=== PATIENT | female | born 1945 | race Caucasian/White ===

== ENCOUNTER → 2016-05-16 | Outpatient (CLI) | payer MEDICARE, BC ==
[~2016-05-16] MED LIST: ADVAIR 250/28 DISKU1 IH; ADVIL200 MG PO; ALTACE 10MG TAB10 MG PO; ALTACE 5MG5 MG PO; ASPIR-LOW81 MG PO; ASPIRIN 32325 MG/TA1 PO; ASPIRIN 81M81 MG/TA2 PO; ASPIRIN E.C. 8181 MG PO; COREG 6.256.25 MG/TA PO; CRUTCHES MC; DULCOLAX S10 MG/SUPP RC; FEMARA PO; FOLIC ACID 40400 MCG PO; FORADIL AERO0.012 MG IH; GOOD NEIGH1200 MG/15 PO; HERCEPTIN440 MG/VIA IV; IRON325 M1 PO; LEVOTHYROXINE0.05 M1 PO; LIPITOR20 MG PO; LOVENOX 4040 MG/0.4 SQ; MULTIPLE VITAMI1 CAP PO; NORCO 325 MG-51 TAB PO; NORCO 325 MG-7.1 TAB PO; PERCOCET 325 MG1 TA2 PO; PREDNISONE20 MG PO; PREMARIN 0.60.625 MG PO; PRIL40; PRILOSEC 20MG20 MG PO; PROAIR HFA0.09 MG/AC IH; ROXICODONE 55 MG/TAB PO; RT SPIRIVA18 MCG IH; SENOKOT S 50 MG1 TAB PO; STIOLTO RESPIMAT4 GM IH; SYNTHROID0.05 MG/TA PO; THEO-24100 MG PO; TIROSINT50 MCG PO; TYLENOL 325MG325 MG PO; ULTRAM 50MG TAB50 MG PO; UNIPHYL 400MG400 MG PO; VITAMIN B COMPL1 SGL PO; VITAMIN C500 MG PO; ZOFRAN 4MG T4 MG/TAB PO
== END ==
LOC: COL.RAD 13:14
DX: R22.2 Localized swelling, mass and lump, trunk (principal); Z85.3 Personal history of malignant neoplasm of breast

== ENCOUNTER → 2016-06-24 | Outpatient (CLI) | payer MEDICARE, BC | LOC: MC.RAD 09:52 | DX: Z12.31 Encounter for screening mammogram for malignant neoplasm of breast (principal); Z85.3 Personal history of malignant neoplasm of breast; Z90.12 Acquired absence of left breast and nipple | CPT/HCPCS: G0202 ==

== ENCOUNTER 2016-12-12 09:52 | Emergency (ER) | payer MEDICARE, BC ==
[~2016-12-12] VITALS: Ht 165.1 cm; Wt 90.9 kg
[~2016-12-12 09:52] MED LIST changes: -CRUTCHES MC; -DULCOLAX S10 MG/SUPP RC; -GOOD NEIGH1200 MG/15 PO; -LOVENOX 4040 MG/0.4 SQ; -NORCO 325 MG-51 TAB PO; -PERCOCET 325 MG1 TA2 PO; -PRILOSEC 20MG20 MG PO; -PROAIR HFA0.09 MG/AC IH; -SENOKOT S 50 MG1 TAB PO; -STIOLTO RESPIMAT4 GM IH; -SYNTHROID0.05 MG/TA PO; -TYLENOL 325MG325 MG PO; -UNIPHYL 400MG400 MG PO; -VITAMIN B COMPL1 SGL PO
[2016-12-12 09:53] VITALS: TEMP 97.8
[2016-12-12] MEDS ORDERED: ALTACE 10MG TAB10 MG PO (10:26)
[2016-12-12] MEDS ORDERED: STIOLTO RESPIMAT4 GM IH (10:26)
[2016-12-12] MEDS ORDERED: ASPIRIN E.C. 8181 MG PO (10:27)
[2016-12-12] MEDS ORDERED: SYNTHROID0.05 MG/TA PO (10:27)
[2016-12-12] MEDS ORDERED: LIPITOR20 MG PO (10:28)
[2016-12-12] MEDS ORDERED: UNIPHYL 400MG400 MG PO (10:28)
[2016-12-12] MEDS ORDERED: PRILOSEC 20MG20 MG PO (10:29)
[2016-12-12] MEDS ORDERED: VITAMIN B COMPL1 SGL PO (10:29)
[2016-12-12] MEDS ORDERED: PERCOCET 325 MG1 TA2 PO (11:12)
[2016-12-12] MEDS ORDERED: CRUTCHES MC (11:50)
[2016-12-12 12:03] VITALS: BP 135/84; PULSE 79
[2016-12-13] MEDS ORDERED: LOVENOX 4040 MG/0.4 SQ (19:20)
== END 2016-12-12 12:02 | disposition home or self-care (01) ==
LOC: COL.ER 09:52
DX: S82.141A Displaced bicondylar fracture of right tibia, initial encounter for closed fracture (principal); J44.9 Chronic obstructive pulmonary disease, unspecified; Z79.82 Long term (current) use of aspirin; W18.39XA Other fall on same level, initial encounter; Y92.830 Public park as the place of occurrence of the external cause; Y93.K1 Activity, walking an animal
CPT/HCPCS: L1830

== ENCOUNTER 2016-12-12 21:00 | Observation (INO) | payer MEDICARE, BC ==
[~2016-12-12] VITALS: Ht 165.1 cm; Wt 88.5 kg
[~2016-12-12 21:00] MED LIST changes: +CRUTCHES MC; +PERCOCET 325 MG1 TA2 PO; +PRILOSEC 20MG20 MG PO; +STIOLTO RESPIMAT4 GM IH; +SYNTHROID0.05 MG/TA PO; +UNIPHYL 400MG400 MG PO; +VITAMIN B COMPL1 SGL PO
[2016-12-12 22:12] LABS: BASO # 0.1 (0.0-0.2); BASO % 0.4 % (0.0-2.0); EOS % 0.2 % (0-4.0); GRAN # 11.6 (1.4-6.5); GRAN % 82.2 % (42.2-75.2); HEMATOCRIT 41.4 % (37.0-47.0); HEMOGLOBIN 14.2 g/dl (12.5-16.0); LYMPH # 1.5 (1.2-3.4); LYMPH % 10.6 % (20.0-51.0); MEAN CELL VOLUME 90 fl (80.0-100.0); MEAN CORPUSCULAR HEMOGLOBIN 31 pg (27.0-31.0); MEAN CORPUSCULAR HGB CONC 34 g/dl (33.0-37.0); MEAN PLATELET VOLUME 10.2 fl (7.4-10.4); MONO # 0.9 (0.1-0.6); MONO % 6.2 % (1.7-9.3); PLATELET COUNT 245 K/mm3 (130-400); RED BLOOD COUNT 4.58 M/mm3 (4.10-5.30); REDCELL DISTRIBUTION WIDTH-CV 12.7 % (11.5-14.5); WHITE BLOOD COUNT 14.1 K/mm3 (4.8-10.8)
[2016-12-12 22:21] LABS: CALCIUM 10.8 mg/dL (8.4-10.2); CREATININE, serum 0.84 mg/dL (0.52-1.25)
[2016-12-12 23:09] VITALS: BP 103/66; PULSE 83; TEMP 98.5
[2016-12-13 01:15] LABS: MAGNESIUM 1.8 mg/dL (1.6-2.3); PHOSPHOROUS 2.4 mg/dL (2.5-4.5)
[2016-12-13 03:49] VITALS: BP 117/84; PULSE 85; TEMP 98
[2016-12-13 04:04] LABS: PH 6 (5-8); SQUAMOUS EPITHELIAL None Seen /hpf; URINE APPEARANCE Clear; URINE BACTERIA Rare /hpf; URINE BILIRUBIN Negative (NEGATIVE); URINE BLOOD Negative (NEGATIVE); URINE COLOR Yellow; URINE GLUCOSE Negative (NEGATIVE); URINE KETONE Trace (NEGATIVE); URINE RBC 0-2 /hpf; URINE UROBILINOGEN Negative (NEGATIVE); URINE WBC 0-2 /hpf
[2016-12-13 06:14] VITALS: BP 97/53; PULSE 83; TEMP 98.4
[2016-12-13 07:04] LABS: BASO # 0.1 (0.0-0.2); BASO % 0.7 % (0.0-2.0); EOS # 0.1 (0.0-0.7); EOS % 1.2 % (0-4.0); GRAN # 6.8 (1.4-6.5); GRAN % 75.6 % (42.2-75.2); HEMATOCRIT 40.3 % (37.0-47.0); HEMOGLOBIN 13.1 g/dl (12.5-16.0); LYMPH # 1.2 (1.2-3.4); LYMPH % 13.3 % (20.0-51.0); MEAN CELL VOLUME 94 fl (80.0-100.0); MEAN CORPUSCULAR HEMOGLOBIN 31 pg (27.0-31.0); MEAN CORPUSCULAR HGB CONC 33 g/dl (33.0-37.0); MEAN PLATELET VOLUME 10.6 fl (7.4-10.4); MONO # 0.8 (0.1-0.6); MONO % 8.9 % (1.7-9.3); PLATELET COUNT 204 K/mm3 (130-400); RED BLOOD COUNT 4.27 M/mm3 (4.10-5.30); REDCELL DISTRIBUTION WIDTH-CV 13.1 % (11.5-14.5)
[2016-12-13 07:13] LABS: CALCIUM 9.9 mg/dL (8.4-10.2); CREATININE, serum 0.85 mg/dL (0.52-1.25)
[2016-12-13 10:00] VITALS: BP 120/76; PULSE 83; TEMP 98.1
[2016-12-13 14:28] VITALS: BP 96/72; PULSE 87; TEMP 98.3
[2016-12-13 18:01] VITALS: BP 127/74; PULSE 83; TEMP 98.2
[2016-12-13] MEDS ORDERED: LOVENOX 4040 MG/0.4 SQ (19:20)
[2016-12-14] MEDS ORDERED: NORCO 325 MG-51 TAB PO (03:21)
== END 2016-12-13 22:00 ==
LOC: COL.ER 21:00 → SURG 22:05
PROVIDERS: Emergency Medicine; Nurse Practitioner Family
DX: G89.11 Acute pain due to trauma (principal); S82.141A Displaced bicondylar fracture of right tibia, initial encounter for closed fracture; W18.39XA Other fall on same level, initial encounter; Y93.01 Activity, walking, marching and hiking; J44.9 Chronic obstructive pulmonary disease, unspecified; E78.5 Hyperlipidemia, unspecified; G47.30 Sleep apnea, unspecified; E03.9 Hypothyroidism, unspecified; Z85.3 Personal history of malignant neoplasm of breast; Z90.12 Acquired absence of left breast and nipple; K21.9 Gastro-esophageal reflux disease without esophagitis; Z96.652 Presence of left artificial knee joint; Z90.710 Acquired absence of both cervix and uterus; E83.52 Hypercalcemia; Z66 Do not resuscitate
CPT/HCPCS: 99222-AI; G0378; G8978-GP; G8979-GP; G8987-GO; G8988-GO; J1170; J2405; J7030

== ENCOUNTER 2016-12-14 00:56 | Inpatient (IN) | payer MEDICARE, BC ==
[2016-12-13 23:15] VITALS: BP 115/69; PULSE 80; TEMP 98.9
--- NOTE | 2016-12-13 23:15 | NUR ---
Patient transferred via wheelchair from room 347 to [facility] room 339. Wt obtained via wheel chair scale. Patient ambulates short distance to bathroom hops on LLE. Immobilizer RLE CDI. Voids and manages all toileting tasks. Nurse wheels patient to the sink where she does HS care. Rates pain 1/10 at this time and received last pain med at 2151 1 tab. Denies need for pain med at this time. Oriented to room and call light and ordering meals on rehab the day before. RT in and applied CPAP. Patient has no jewelry or money/cards with her. Purse,suitcase, CPAP with case and gómez brought to room.
[~2016-12-14] VITALS: Ht 165.1 cm; Wt 89.9 kg
[~2016-12-14 00:56] MED LIST changes: +LOVENOX 4040 MG/0.4 SQ
--- NOTE | 2016-12-14 01:00 | NUR ---
rests with eyes closed. CPAP on.
--- NOTE | 2016-12-14 03:00 | NUR ---
rests with eyes closed.
[2016-12-14] MEDS ORDERED: NORCO 325 MG-51 TAB PO (03:21)
--- NOTE | 2016-12-14 04:12 | NUR ---
continues resting with eyes closed.
[2016-12-14 06:00] VITALS: BP 127/81; PULSE 87; TEMP 98
--- NOTE | 2016-12-14 06:00 | NUR ---
PATIENT IS MIN 1 CONTACT GUARD ASSIST WITH WALKER TO THE BATHROOM. HOPS ON LEFT LEG. VOIDS AND SITS UP IN RECLINER. MEALS FAXED TO [employer]. CONSENTS SIGNED. REVIEWED THERAPY SCHEDULE.
[2016-12-14 06:35] LABS: BASO # 0.1 (0.0-0.2); BASO % 0.6 % (0.0-2.0); EOS # 0.4 (0.0-0.7); EOS % 4.4 % (0-4.0); GRAN # 4.8 (1.4-6.5); GRAN % 59.9 % (42.2-75.2); HEMATOCRIT 38.9 % (37.0-47.0); HEMOGLOBIN 12.8 g/dl (12.5-16.0); LYMPH % 25.4 % (20.0-51.0); MEAN CELL VOLUME 94 fl (80.0-100.0); MEAN CORPUSCULAR HEMOGLOBIN 31 pg (27.0-31.0); MEAN CORPUSCULAR HGB CONC 33 g/dl (33.0-37.0); MEAN PLATELET VOLUME 10.7 fl (7.4-10.4); MONO # 0.7 (0.1-0.6); MONO % 9.3 % (1.7-9.3); PLATELET COUNT 206 K/mm3 (130-400); RED BLOOD COUNT 4.14 M/mm3 (4.10-5.30); REDCELL DISTRIBUTION WIDTH-CV 12.9 % (11.5-14.5)
[2016-12-14 06:47] LABS: CALCIUM 9.8 mg/dL (8.4-10.2); CREATININE, serum 0.75 mg/dL (0.52-1.25); POTASSIUM 4.3 mmol/L (3.4-5.0)
--- NOTE | 2016-12-14 15:30 | NUR ---
During assessment pt requested I look at back due to itching. Few small scattered red bumps on left side lower back. States has had some itching at scalp & has Triamcinolone at home which has helped. Offered lotion, refused at this time. Will pass on report, pt may have friend bring Triamcinolone in if ok'd by doctor.
[2016-12-14 15:52] VITALS: BP 90/60; PULSE 84; TEMP 98.8
--- NOTE | 2016-12-14 16:45 | NUR ---
SW met with patient to review discharge goals. Patient lives alone in [place], she reports that she was independent prior to her fall, she has her walker with her in the hosptial. Patient she reports that her major concern is two steps in her home, she needs to access this area to let her dogs outside. Patient's goal is to return home upon discharge, SW to continue to follow.
--- NOTE | 2016-12-14 20:30 | NUR ---
PT RESTING IN BED. WATCHING TV. DENIES PAIN AT THIS TIME. IMMOBILIZER TO RLE. PPP. GOOD SENSATION. SMALL AMT EDEMA.
--- NOTE | 2016-12-14 21:00 | NUR ---
CPAP APPLIED. NORCO GIVEN FOR RT LEG PAIN. LEVEL 5-6.
[2016-12-15 06:00] VITALS: BP 104/57; PULSE 79; TEMP 98.3
--- NOTE | 2016-12-15 14:31 | NUR ---
Patient visiting with friend this afternoon. Positioned in recliner with legs elevated and immobilizer on. Refused Lovenox today. Currently on daily aspirin. Repositioned immobilizer for better comfort. Pleasent this shift. This nurse didn't observe any rash on back, just a spot that she reported was itching. Applied Triamciniolone cream to the area. Slip proof socks on, walker within reach, call light within reach and chair alarm on.
--- NOTE | 2016-12-15 17:20 | NUR ---
Patient resting in recliner with leg elevated, slip proof socks on, chair alarm on, call light within reach. Tolerating diet. Went for a brief walk with patient using gait belt walking down past nurse station back to her room. Reported knee pain 3/10 throbbing when walking. Popped blister to right palm, patient started using weight lifting gloves with cushion to provide extra cushion when using her walker to prevent any further blisters.
[2016-12-15 18:48] VITALS: BP 90/65; PULSE 71; TEMP 98.1
--- NOTE | 2016-12-16 02:56 | NUR ---
PT HAS BEEN ON RA FOR THE LAST 24 HOURS, DC O2 PER PROTOCOL.
--- NOTE | 2016-12-16 03:30 | NUR ---
The pt was up in her recliner as the shift began, she verbalized of the past 2 1\2 years of medical issues. She verbalized that she is upset that the orthopaedic doctor has not been in to see her and that she wants to be seen by Dr. Benítez as he did her TKR and she feels confident in his ability to care for her. She refuses her Lovenox VTE. Pt teaching was attempted, she still refused. She declined bowel regime, stated that she ate high fiber foods and will probably have a bm tomorrow. She is up to stand with min assist, CGA to ambulate with gait belt and walker. She is compliant with the use of her immobilizer.She appears to get adequate sleep. and takes 1 [place] as needed for effective pain control.
[2016-12-16 05:54] VITALS: BP 107/59; PULSE 73; TEMP 98.1
--- NOTE | 2016-12-16 08:20 | NUR ---
Report from MANDO Stapleton. Pt in bed with LLE elevated on pillows, glasses in place, call light in reach, reviewed POC with Dr. Fernández and importance of taking Lovenox. Immobilizer to LLE.
--- NOTE | 2016-12-16 11:33 | NUR ---
First visit from the manager interventional. No spiritual needs right now.
--- NOTE | 2016-12-16 15:05 | NUR ---
A 71 year old female was admitted to rehab on 12/14/16 with a Right tibial plateau fracture & is NWB. She is alert & oriented. Able to verbally communicate her needs & wants to others. She lives at home alone & was doing her own ADL's, IADL's, & walked without a device over 5 miles per day. Her home is 1 story w/ basement. There are 3 steps to enter with handrail on the left but reports it is wobbly. There are 2 steps w/o handrail from her living room to the kitchen & rest of home. The laundry is in the basement, which has a flight of steps with handrail on the right. The bathroom has a walk-in shower with curtain, grab bars & built in seat. The toilet is ADA height. She has her own r/walker & project estimator. Her PCP is Floyd Valdez. Pt plans on returning home at d/c & has friends who can assist her with IADL activities. SW will continue to follow for any concerns/issues & d/c planning.
[2016-12-16 16:00] VITALS: BP 114/61; PULSE 84; TEMP 98
--- NOTE | 2016-12-16 16:11 | NUR ---
Notified OR scheduling for ORIF on 12/18/16 to follow current schedule. Paged [facility] and left call back number.
--- NOTE | 2016-12-16 17:36 | NUR ---
Pt eating in recliner with feet elevated, brace in place, call light in reach, glasses and gripper socks in place, cell phone in reach. Pt verbalizes being upset about "falling through the cracks" regarding orthopedic surgery up until Dr. Benítez consulted this evening.
[2016-12-17 04:58] VITALS: BP 99/59; PULSE 77; TEMP 98.5
--- NOTE | 2016-12-17 05:23 | NUR ---
The pt was sitting up in her recliner for most of the evening, reads from her tablet and watches TV. Up to the BR to void, then to the sink for HS cares, to bed, pants doffed, wears her soft t-shirt to bed. Requested and given 1 [place] tab for pain. She enjoyed conversation about paracites in animals and people. She is a SBA, with good attention to safety and surroundings. She is pleased that Dr. Benítez is on her case and that she will have repair done on Friday. Appears to get adequate sleep.
--- NOTE | 2016-12-17 11:01 | NUR ---
Spoke with pt about the information regarding having to have surgery on her leg. She told SW that she was initially upset but had good friends present who helped her work through it. She also stated she is glad to get it done sooner than later. Pt seems to be coping/adjusting with the news well & appropriately at this time. Will continue to follow for support.
--- NOTE | 2016-12-17 12:47 | NUR ---
Pt in chair with feet up for lunch, friend Renetta visiting. Pt given pain pill per request, brace to RLE, gripper socks in place, glasses in place, call light in reach.
[2016-12-17 16:00] VITALS: BP 95/56; PULSE 75; TEMP 98.7
--- NOTE | 2016-12-17 20:40 | NUR ---
Pt. sitting up in chair at this time. Pt. is A&OX3, assessment complete. Pt. reports pain to rt. leg at a 4 on pain scale. Pt. requests a pain pill with evening meds, will give per orders. Immobilizer brace to rt. leg. Pt. denies further needs at this time. Call light within reach.
[2016-12-18 06:00] VITALS: BP 126/67; PULSE 80; TEMP 97.8
--- NOTE | 2016-12-18 08:30 | NUR ---
PATIENT DISCHARGED FROM [facility] AND ADMITED INTO ROOM 330 FOR PENDING SURGERY TODAY. SEE ORDERS.
--- NOTE | 2016-12-18 08:30 | NUR ---
Patient transferred to Room #330 Surgical by Silvina Hughes RN.
--- NOTE | 2016-12-18 09:28 | NUR ---
Visited with pt about d/c to surgery. She continues to have mixed feelings but knows it will be for the best. She continues to have concerns about the 2 steps in her home, so presented her with 3 options: 1) temporary ramp, 2) crutches, & 3) grab bar on the wall.
[2016-12-20] MEDS ORDERED: PROAIR HFA0.09 MG/AC IH (08:57)
[2016-12-20] MEDS ORDERED: ASPIRIN 32325 MG/TA1 PO (08:58)
[2016-12-20] MEDS ORDERED: GOOD NEIGH1200 MG/15 PO (08:59)
[2016-12-20] MEDS ORDERED: DULCOLAX S10 MG/SUPP RC (08:59)
[2016-12-20] MEDS ORDERED: SENOKOT S 50 MG1 TAB PO (08:59)
[2016-12-20] MEDS ORDERED: NORCO 325 MG-7.1 TAB PO (08:59)
--- NOTE | 2016-12-20 11:45 | NUR ---
readmitted to [facility] to room 333 after interruption of stay due surgical intervention of right tibia plateau fracture,
--- NOTE | 2016-12-20 12:38 | NUR ---
assisted up to bathroom and then back to recliner
--- NOTE | 2016-12-20 13:10 | NUR ---
physical therapy in to work with patient, medicated with hydrocodone 7.5mg 1 tabs per patient's request
--- NOTE | 2016-12-20 14:50 | NUR ---
out of room and working with therapy
--- NOTE | 2016-12-20 14:54 | NUR ---
Pt was readmitted to rehab from surgical after an interruption of stay for surgical procedure of her right tibial plateau fracture. She is glad to be back & ready to work with the therapists so she can get stronger & able to take care of herself. She continues to plan on returning home at d/c. Will continue to follow for support & d/c planning.
--- NOTE | 2016-12-20 16:08 | NUR ---
moving about in room per WC, denies needs
--- NOTE | 2016-12-20 17:33 | NUR ---
up in chair eating supper, medicated with hydrocodone 7.5mg 1 tab
[2016-12-20 18:39] VITALS: BP 93/58; PULSE 87; TEMP 98.5
--- NOTE | 2016-12-20 19:21 | NUR ---
bedside shift report given to MANDO May
--- NOTE | 2016-12-20 19:30 | NUR ---
Patient sits up in wheelchair. RLE elevated on pillow/leg rest. Denies need for pain med at this time. HS meds all reviewed and given. Alert and oriented/pleasant.
--- NOTE | 2016-12-21 01:00 | NUR ---
rests with eyes closed. CPAP on.
[2016-12-21 04:23] VITALS: BP 104/64; PULSE 76; TEMP 98.1
--- NOTE | 2016-12-21 05:23 | NUR ---
RESTS IN BED WITH CPAP ON. RESPIRATIONS WITH EASE.
--- NOTE | 2016-12-21 08:29 | NUR ---
PATIENT ASSESSMENT COMPLETED. SHE DENIES PAIN AT THIS TIME, SHE THINKS SHE IS GOING TO TRY JUST TYLENOL NEXT TIME FOR COMPLAINTS OF PAIN. MARY IS MAKING HER FEEL FUNNY. BOTH LEGS ELEVATED. BRACE ON THE RIGHT LEG NOW.
--- NOTE | 2016-12-21 15:15 | NUR ---
NOTIFIED DR. HARRIS THAT PATIENT NEEDS TO BE SEEN TODAY SINCE SHE WAS ADMITTED YESTERDAY. HE WILL BE IN TO SEE HER.
[2016-12-21 18:00] VITALS: BP 105/66; PULSE 79; TEMP 98.9
--- NOTE | 2016-12-21 18:30 | NUR ---
PATIENT WHEELS HERSELF AROUND THE HALLWAY IN WHEELCHAIR WITHOUT DIFFICULTY. DENIES ANY NEEDS.
--- NOTE | 2016-12-21 20:00 | NUR ---
Patient sitting up in recliner. Alert and oriented x4 denies needs. HS meds reviewed and given.
--- NOTE | 2016-12-21 21:50 | NUR ---
Calls for pain med. Pain 3/10 on pain scale to RLE and tylenol given. Patient is resting back in bed. CPAP at bedside.
--- NOTE | 2016-12-21 23:08 | NUR ---
Rests in bed with eyes closed. CPAP on.
--- NOTE | 2016-12-22 01:00 | NUR ---
PATIENT UP TO THE BATHROOM WITH WALKER ACCOMPANIED BY CAREER SERVICES ASSISTANT.
--- NOTE | 2016-12-22 02:00 | NUR ---
RESTS WITH EYES CLOSED.
--- NOTE | 2016-12-22 03:00 | NUR ---
RESTS IN BED WITH CPAP ON.
[2016-12-22 05:11] VITALS: BP 145/65; PULSE 76; TEMP 98.2
--- NOTE | 2016-12-22 05:13 | NUR ---
PATIENT UP TO THE BATHROOM AND BACK TO BED WITH WALKER AND ROLLING MILL OPERATOR. MAX ASSIST WITH RLE INTO BED. REVIEWED WITH PATIENT MEDICATION CHANGES SUCH ASA 325MG BID FOR DVT PREVENTION PER ORTHO AND HOLDING BABY ASA AND DECREASE IN ALTACE TO 5MG. REVIEWED BP AND WILL BE MONITORING FOR TRENDS UP OR DOWN. REVIEWED LAST HGB AND SYMPTOMS OF LOW BP. EXPLAINED CARE PLAN MEETING Q FRI. TYLENOL GIVEN PER REQUEST FOR 2/10 ACHY PAIN RLE.
--- NOTE | 2016-12-22 06:07 | NUR ---
RESTS IN BED WITH EYES CLOSED. CPAP ON.
--- NOTE | 2016-12-22 09:06 | NUR ---
Report from MANDO May. Pt called to toilet, immobilizer to RLE, donned gripper sock, pt transferred out of bed with SBA, donned gait belt, ambulated to bathroom with FWW, steady, pleasant, A&O. Denies pain.
--- NOTE | 2016-12-22 09:39 | NUR ---
Friend visiting, pt denies any needs at this time. In chair with feet elevated.
[2016-12-22 16:09] VITALS: BP 124/79; PULSE 74; TEMP 97.5
--- NOTE | 2016-12-22 20:11 | NUR ---
Re-wrapped YOBANY to RLE and donned immobilizer again, pt in bed with pillow under RLE, alarm on, call light in reach. Drainage present under aquacel, about 15% saturation.
[2016-12-22 21:05] VITALS: BP 110/74; PULSE 86; TEMP 97.7
[2016-12-23 04:21] VITALS: BP 113/70; PULSE 77; TEMP 98.7
--- NOTE | 2016-12-23 04:48 | NUR ---
The pt was bedresting when the shift began, watches TV, pain manageable, wants Tylenol at HS Called out a short time later, stated that she had a sudden onset wave of nausea and dry heaved a few times, this nurse called John Hernandez ordered and given, the pt asks if it could be a heart attack, she denied chest pain, arm pain, her vss, 110/74, 97.7, 97% RA, 20, 86. Her skin was cool and dry, she took the Zofran and within 10 minutes was markedly improved. Ate isatu crackers, sipped on [place] gatorade. She was given her bi-pap at 0200, rt had not been in to set her up. this nurse assisted her after she was up to the br to void. encouraged her to be consistent with its use. She called for Tylenol at 0435, given. She appears to get adequate sleep- sleeps in long naps.
--- NOTE | 2016-12-23 10:52 | NUR ---
Report from MANDO [place]. Pt in chair, call light in reach, ambulates TTWB to RLE, immobilizer in place, re-wrapped rajinder as pt c/o too tight at foot, surgical aquacel dressing has shadowing, traced the outlines, reapplied brace, pt maritza well. Reported to Dr. Olmstead pt's "episode" last night. Inquired pt about what happened, denies a "panic attack," states she woke up nauseated, dizzy, and told this nurse she was short of breath. Asked pt if she was wearing her BiPAP and pt states that she has not been hooked up to it at night since re-admission. RT notified to resume BiPAP. No other acute changes.
--- NOTE | 2016-12-23 12:41 | NUR ---
Pt has several visitors in room, in wheelchair with RLE elevated in brace. Denies need to toilet.
--- NOTE | 2016-12-23 14:38 | NUR ---
Pt in recliner with feet elevated, in gown and gripper sock, glasses in place, encouraged IS, call light in reach.
[2016-12-23 18:05] VITALS: BP 105/65; PULSE 85; TEMP 98.2
--- NOTE | 2016-12-23 20:30 | NUR ---
Pt. sitting up in chair at this time. Pt. is A&OX3, assessment complete. Dressing to Rt. knee noted, Immobilizer on. Pt. denies pain or other needs at this time. Call light within reach.
[2016-12-24 04:40] VITALS: BP 113/61; PULSE 73; TEMP 98.5
[2016-12-24 06:22] LABS: BASO # 0.1 (0.0-0.2); BASO % 0.7 % (0.0-2.0); EOS # 0.5 (0.0-0.7); EOS % 5.2 % (0-4.0); GRAN # 5.7 (1.4-6.5); GRAN % 66.1 % (42.2-75.2); LYMPH # 1.6 (1.2-3.4); LYMPH % 18.5 % (20.0-51.0); MEAN CELL VOLUME 92 fl (80.0-100.0); MEAN CORPUSCULAR HGB CONC 33 g/dl (33.0-37.0); MEAN PLATELET VOLUME 10.1 fl (7.4-10.4); MONO # 0.8 (0.1-0.6); MONO % 9.2 % (1.7-9.3); PLATELET COUNT 336 K/mm3 (130-400); RED BLOOD COUNT 3.46 M/mm3 (4.10-5.30); REDCELL DISTRIBUTION WIDTH-CV 12.4 % (11.5-14.5)
[2016-12-24 06:23] LABS: HEMATOCRIT 31.9 % (37.0-47.0); HEMOGLOBIN 10.5 g/dl (12.5-16.0); MEAN CORPUSCULAR HEMOGLOBIN 30 pg (27.0-31.0)
[2016-12-24 06:37] LABS: CREATININE, serum 0.88 mg/dL (0.52-1.25); MAGNESIUM 1.8 mg/dL (1.6-2.3); POTASSIUM 4.2 mmol/L (3.4-5.0)
--- NOTE | 2016-12-24 10:18 | NUR ---
Initial visit; Patient thanked Area Secretary for looking in on her, visiting and offering prayer. Area Secretary will follow up. Patient appears to be in good spirits.
--- NOTE | 2016-12-24 10:40 | NUR ---
Patient resting in recliner with right leg wrapped and in immobilizer. Pain of 0/10. Reported slept ok last night. Reports some SOB with exertion, but nothing out of the usual. Reports also having issues adjusting to the CPAP, but will continue to work on that. Left foot has slip proof sock, call light in reach. Pleasent mood. Is interested in getting lambs wool to help with pressure to back of left leg where immobilizer is. Therapy was notified and will work on getting her some.
--- NOTE | 2016-12-24 11:13 | NUR ---
Visited with pt. She told SW that she is doing better today but apparently she did not have a good day during the weekend which concerned her. We talked more about the 2 steps in her home, which PT is going to work with her this afternoon. Told her the team is recommending a w/c for longer distance, which she is fine with. We talked about team conference tomorrow. Pt is not looking to leave right away & would not mind staying until the team recommends d/c. Will continue to follow for support & d/c planning.
[2016-12-24 17:28] VITALS: BP 115/65; PULSE 75; TEMP 99.3
--- NOTE | 2016-12-24 19:30 | NUR ---
Pt. sitting up in chair at this time. Pt. is A&OX3, assessment complete. Dressing to rt. leg CDI. Pt. denies pain or other needs at this time. Call light within reach.
[2016-12-25 06:39] VITALS: BP 113/74; PULSE 86; TEMP 97.5
--- NOTE | 2016-12-25 10:11 | NUR ---
Patient resting in wheelchair with call light within reach and slip proof socks on. Pain 2/10 left knee aching. Tolerating her general diet well. Reports since leg immobilizer was fixed yesterday she is able to pull pants down better herself and soreness behind the immobilizer is gone. Pleasent mood.
--- NOTE | 2016-12-25 11:02 | NUR ---
Follow-up; Patient thanked Wood Machinist for offering encouragement and well wishes.
--- NOTE | 2016-12-25 15:15 | NUR ---
Reviewed team conference with pt. She stated she understood & agreed with current level of functioning. Informed her of d/c being set for 12/28/16, with recommendation for home health. Told her the team is recommending a home assessment, which she feels would be helpful. She is checking with her friends to see if any of them could transport her tomorrow afternoon. Also told her the team is recommending w/c. Pt had no questions/concerns at this time. Will continue to follow for support & d/c planning.
--- NOTE | 2016-12-25 17:21 | NUR ---
Went back to pt & inquired about a ride for the home assessment. She confirmed she did have a friend who would be here at 12:30 tomorrow. She also told SW that she [facility] & would like to use [facility] for the w/c. Told her SW will work on that tomorrow. She also inquired about being d/c'd on Friday vs Friday due to her friends being available Friday. Told her SW would talk with therapists & Dr. Olmstead.
[2016-12-25 17:38] VITALS: BP 120/75; PULSE 80; TEMP 97.6
--- NOTE | 2016-12-25 18:25 | NUR ---
Patient resting in wheelchair watching TV. Slip proof socks on, chair alarm on and call light within reach. Pleasent mood. Is a touch assist with walking to the bathroom and returning to . Pain 2/10 in bilateral shoulders this evening with PRN Tylenol given. Tolerating diet well.
--- NOTE | 2016-12-25 20:30 | NUR ---
Patient sits up in recliner with legs elevated. Immobilizer RLE CDI. Pleasant. HS meds along with tylenol reviewed and given.
--- NOTE | 2016-12-26 00:44 | NUR ---
rests with eyes closed.
--- NOTE | 2016-12-26 01:30 | NUR ---
rests with eyes closed. CPAP on.
[2016-12-26 04:49] VITALS: BP 97/53; PULSE 72; TEMP 98.5
--- NOTE | 2016-12-26 04:55 | NUR ---
RESTS IN BED WITH EYES CLOSED.
--- NOTE | 2016-12-26 09:22 | NUR ---
Visited with pt regarding d/c plans. Informed her SW had spoken to Dr. Olmstead & he is fine with her leaving on 12/27/16. Pt is pleased to hear this as her friends will be able to help her get home & settled. Reviewed with pt she would like to get the w/c from [facility] & receive home health [facility]. Told her SW would come back this afternoon after the home assessment to see if there are anything additional SW needs to help with or questions. Pt had no questions/concerns at this time. Will continue to provide support & d/c planning.
--- NOTE | 2016-12-26 09:33 | NUR ---
Follow-up visit; Brandy is doing well and hopes to be discharged for the weekend to spend time with friends. She thanked Surveillance Director for all her well wishes and keeping her in her prayers.
--- NOTE | 2016-12-26 15:00 | NUR ---
Patient resting in recliner with legs elevated, call light within reach and slip proof socks on. Patient is now Mod I in her room. Patient has had some concern with her morning blood pressure being lower then she is use to and the fact that her Altace has had to be held for the past couple of mornings due to SBP <120. Patient was educated that her vital signs have been stable as well as the reason for holding the Altace and she voiced understanding, but wanted to have her concerns communicated to the physician. Patient reported that she was very tired following her home visit today and feels that she was very exausted fast and this concerned her.
--- NOTE | 2016-12-26 15:44 | NUR ---
Spoke with pt about how the home assessment went. She told SW that it went pretty well but will definitely need someone with her when she comes & goes from the house. She feels good about going home. Informed her the w/c was ordered & will be delivered tomorrow before she d/c's. She inquired about toilet seat riser w/ arm. Explain this is an out of pocket expense & provided her with places she could obtain one. Pt had no questions/concerns at this time. Reviewed the Medicare Rights form w/ pt & pt signed.
[2016-12-26 16:29] VITALS: BP 136/65; PULSE 78; TEMP 97.3
[2016-12-27 05:07] VITALS: BP 117/79; PULSE 72; TEMP 98.4
--- NOTE | 2016-12-27 06:42 | NUR ---
PT SAFELY REMAINS MOD IN ROOM. TOOK TYLENOL EARLIER FOR RT LEG DISCOMFORT. PLANS ARE TO BE DISMISSED FRIENDS.
--- NOTE | 2016-12-27 09:01 | NUR ---
Visited with pt regarding d/c today. She states she is ready. She did have questions regarding ramp, which she is considering placing in the garage. Answered her questions. Informed her of [facility] will be contacting her to schedule time to come to her home on Friday. Also reminded her that [facility] will deliver the w/c before she is d/c'd. Pt had no other questions/concerns at this time.
--- NOTE | 2016-12-27 11:37 | NUR ---
Report from MANDO Orozco. Pt maritza mod I in room w/ wheelchair and FWW. Takes pills whole with thin liquids, A&O, pleasantly cooperative, plans to discharge home today with HH for PT/OT. Tylenol given for pain. Changed aquacel dressing to RLE, had sanguinous drainage, asher intact, edges well approximated, ecchymosis present, no swelling along incision nor redness. Cleansed with four iodine swabs, applied new surgical aquacel dressing and dated. Wrapped in new double 6" rajinder wrap from toes to groin and applied immobilizer. Pt maritza well.
[2016-12-27] MEDS ORDERED: TYLENOL 325MG325 MG PO (12:29)
--- NOTE | 2016-12-27 15:45 | NUR ---
Reviewed discharge instructions with pt.
--- NOTE | 2016-12-27 22:56 | NUR ---
Patient Health Summary, Discharge Summary, and Home Med listed printed and reviewed with pt. Stressed importance of follow up appointments. Belongings gathered by pt and KASSANDRA Bro, including partial, CPAP, wheelchair, glasses, purse, and suitcase. Pt transported via wheelchair with brace to [facility] by KASSANDRA Bro for ride home with friend. Pt denied any questions. Reports RT returned inhaler. Discharged at 1605
== END 2016-12-27 16:05 | disposition home health service (06) | DRG 561 ==
LOC: TMPLOALOC 12-18 08:30
PROVIDERS: Internal Medicine; Nurse Practitioner Family; ADMIT Family Medicine
DX: S82.141D Displaced bicondylar fracture of right tibia, subsequent encounter for closed fracture with routine healing (principal); I10 Essential (primary) hypertension; J44.9 Chronic obstructive pulmonary disease, unspecified; E78.5 Hyperlipidemia, unspecified; K21.9 Gastro-esophageal reflux disease without esophagitis; G47.33 Obstructive sleep apnea (adult) (pediatric); W01.0XXA Fall on same level from slipping, tripping and stumbling without subsequent striking against object, initial encounter; Z85.3 Personal history of malignant neoplasm of breast; Z87.891 Personal history of nicotine dependence
CPT/HCPCS: 99222-AI; 99232-AI; 99233-AI; 99239; J1650

== ENCOUNTER 2016-12-18 08:35 | Inpatient (IN) | payer MEDICARE, BC ==
[2016-12-18] VITALS (8 sets, daily range): BP systolic 89–110; BP diastolic 54–74; PULSE 79–91; TEMP 98.6
[~2016-12-18 08:35] MED LIST changes: +NORCO 325 MG-51 TAB PO
[2016-12-18 10:34] LABS: BASO # 0.1 (0.0-0.2); BASO % 0.8 % (0.0-2.0); EOS # 0.5 (0.0-0.7); EOS % 5.4 % (0-4.0); GRAN # 5.5 (1.4-6.5); GRAN % 64.8 % (42.2-75.2); HEMATOCRIT 38.3 % (37.0-47.0); LYMPH # 1.8 (1.2-3.4); LYMPH % 20.6 % (20.0-51.0); MEAN CELL VOLUME 92 fl (80.0-100.0); MEAN CORPUSCULAR HEMOGLOBIN 31 pg (27.0-31.0); MEAN CORPUSCULAR HGB CONC 34 g/dl (33.0-37.0); MEAN PLATELET VOLUME 10.8 fl (7.4-10.4); MONO # 0.7 (0.1-0.6); MONO % 8.2 % (1.7-9.3); PLATELET COUNT 243 K/mm3 (130-400); RED BLOOD COUNT 4.18 M/mm3 (4.10-5.30); REDCELL DISTRIBUTION WIDTH-CV 12.6 % (11.5-14.5); WHITE BLOOD COUNT 8.6 K/mm3 (4.8-10.8)
[2016-12-18 10:37] LABS: INR 1.1 (0.8-3.0); PROTHROMBIN TIME 11.8 SECONDS (9.7-12.8)
[2016-12-18 10:40] LABS: ALBUMIN 4.1 gm/dL (3.5-5.0); BILIRUBIN,TOTAL 1.4 mg/dL (0.0-1.0); CALCIUM 10.1 mg/dL (8.4-10.2); CREATININE, serum 0.76 mg/dL (0.52-1.25); POTASSIUM 4.9 mmol/L (3.4-5.0)
[2016-12-18 10:57] LABS: PH 7 (5-8); SQUAMOUS EPITHELIAL None Seen /hpf; URINE APPEARANCE Clear; URINE BACTERIA None Seen /hpf; URINE BILIRUBIN Negative (NEGATIVE); URINE BLOOD Negative (NEGATIVE); URINE COLOR Yellow; URINE GLUCOSE Negative (NEGATIVE); URINE KETONE Negative (NEGATIVE); URINE RBC None Seen /hpf; URINE UROBILINOGEN Negative (NEGATIVE); URINE WBC 0-2 /hpf
[2016-12-19] VITALS (9 sets, daily range): BP systolic 120–183; BP diastolic 30–106; PULSE 74–87; TEMP 97.7–98.6
[2016-12-19 07:04] LABS: HEMATOCRIT 34.4 % (37.0-47.0); HEMOGLOBIN 11.5 g/dl (12.5-16.0)
[2016-12-19 07:12] LABS: ADJUSTED CALCIUM 10.1 mg/dL (8.4-10.2); ALBUMIN 3.5 gm/dL (3.5-5.0); BILIRUBIN,TOTAL 0.7 mg/dL (0.0-1.0); CALCIUM 9.7 mg/dL (8.4-10.2); CREATININE, serum 0.82 mg/dL (0.52-1.25); POTASSIUM 4.5 mmol/L (3.4-5.0); TOTAL PROTEIN 6.1 gm/dL (6.4-8.2)
[2016-12-20 02:58] VITALS: BP 187/63; BP 99/53; PULSE 76; TEMP 97.4
[2016-12-20] MEDS ORDERED: PROAIR HFA0.09 MG/AC IH (08:57)
[2016-12-20] MEDS ORDERED: ASPIRIN 32325 MG/TA1 PO (08:58)
[2016-12-20] MEDS ORDERED: GOOD NEIGH1200 MG/15 PO (08:59)
[2016-12-20] MEDS ORDERED: NORCO 325 MG-7.1 TAB PO (08:59)
[2016-12-20] MEDS ORDERED: SENOKOT S 50 MG1 TAB PO (08:59)
[2016-12-20] MEDS ORDERED: DULCOLAX S10 MG/SUPP RC (08:59)
[2016-12-20 09:33] VITALS: BP 109/60; PULSE 77; TEMP 98.2
== END 2016-12-20 11:42 | DRG 494 ==
LOC: JCC 08:35
PROVIDERS: Orthopaedic Surgery; Physician Assistant
PROC: 0QUG0JZ Supplement Right Tibia with Synthetic Substitute, Open Approach (ICD-10-PCS; 2016-12-18)
PROC: 0QSG04Z Reposition Right Tibia with Internal Fixation Device, Open Approach (ICD-10-PCS; principal; 2016-12-18 16:30)
DX: S82.141A Displaced bicondylar fracture of right tibia, initial encounter for closed fracture (principal); W18.30XA Fall on same level, unspecified, initial encounter; I10 Essential (primary) hypertension; J44.9 Chronic obstructive pulmonary disease, unspecified; Z85.3 Personal history of malignant neoplasm of breast
CPT/HCPCS: 99222-AI; 99223-AI; 99231-AI; 99239; A9284; C1713; J0690; J1100; J1170; J1885; J2370; J2405; J2704; J3010; J7120; L1832

== ENCOUNTER → 2017-06-25 | Outpatient (CLI) | payer MEDICARE, BC ==
[~2017-06-25] MED LIST changes: +DULCOLAX S10 MG/SUPP RC; +GOOD NEIGH1200 MG/15 PO; +PROAIR HFA0.09 MG/AC IH; +SENOKOT S 50 MG1 TAB PO; +TYLENOL 325MG325 MG PO
== END ==
LOC: MC.RAD 08:39
DX: Z12.31 Encounter for screening mammogram for malignant neoplasm of breast (principal)

== ENCOUNTER 2018-06-25 15:05 | Outpatient (CLI) | payer MEDICARE, BC ==
[~2018-06-25] VITALS: Ht 165.1 cm; Wt 85.0 kg
[2018-06-25 15:23] VITALS: BP 130/66; PULSE 64; TEMP 97.8
[2018-06-25] MEDS ORDERED: BEVESPI AEROS10.7 GM IH (15:26)
[2018-06-25] MEDS ORDERED: ALTACE 10MG TAB10 MG PO (15:27)
[2018-06-25] MEDS ORDERED: THEO-DUR 2200 MG/TAB PO (15:29)
[2018-06-25] MEDS ORDERED: MULTIPLE VITAMI1 CAP PO (15:33)
[2018-06-25] MEDS ORDERED: VITAMIN D 1001000 IU PO (15:33)
[2018-06-25] MEDS ORDERED: SYNTHROID0.05 MG/TA PO (15:34)
== END 2018-06-25 16:38 | disposition home or self-care (01) ==
LOC: EUO 15:05
DX: M81.0 Age-related osteoporosis without current pathological fracture (principal); M85.80 Other specified disorders of bone density and structure, unspecified site
CPT/HCPCS: J3489

== ENCOUNTER → 2018-07-10 | Outpatient (CLI) | payer MEDICARE, BC ==
[~2018-07-10] MED LIST changes: +BEVESPI AEROS10.7 GM IH; +THEO-DUR 2200 MG/TAB PO; +VITAMIN D 1001000 IU PO
== END ==
LOC: COL.VAS 09:18
DX: R60.0 Localized edema (principal); R01.1 Cardiac murmur, unspecified

== ENCOUNTER → 2019-08-26 | Outpatient (CLI) | payer MEDICARE, BC ==
[~2019-08-26] MED LIST changes: +ASPIRIN 32325 MG/TAB PO; +FLAGYL500 MG PO; +LEVAQUIN 750MG750 M1 PO
== END ==
LOC: COL.VAS 07:44
DX: I34.0 Nonrheumatic mitral (valve) insufficiency (principal)

== ENCOUNTER → 2019-09-23 | Outpatient (CLI) | payer MEDICARE, BC | LOC: MC.RAD 12:49 | DX: Z12.31 Encounter for screening mammogram for malignant neoplasm of breast (principal) ==

== ENCOUNTER → 2020-09-25 | Outpatient (CLI) | payer MEDICARE, BC | LOC: MC.RAD 09:45 | DX: Z12.31 Encounter for screening mammogram for malignant neoplasm of breast (principal) ==

== ENCOUNTER → 2021-10-02 | Outpatient (CLI) | payer MEDICARE, BC | LOC: MC.RAD 13:44 | DX: Z12.31 Encounter for screening mammogram for malignant neoplasm of breast (principal); Z85.3 Personal history of malignant neoplasm of breast ==

== ENCOUNTER → 2023-11-04 | Outpatient (CLI) | payer MEDICARE | LOC: MC.RAD 10:00 | DX: Z12.31 Encounter for screening mammogram for malignant neoplasm of breast (principal) ==